=== PATIENT | male | born 1970 | race Two or more races ===

== ENCOUNTER 2016-06-08 02:27 | Emergency (ER) | payer OTHER ==
[~2016-06-08] VITALS: Ht 167.6 cm; Wt 74.8 kg
[2016-06-08 02:29] VITALS: BP 180/91
--- NOTE | 2016-06-08 02:59 | NUR ---
CALLED PT NAME X 3. PT NOT IN WAITING ROOM AT THIS TIME.
--- NOTE | 2016-06-08 03:24 | NUR ---
CALLED PT NAME X 3. PT NOT IN WAITING ROOM AT THIS TIME.
== END 2016-06-08 03:26 | disposition left against medical advice (07) ==
LOC: ER 02:28
DX: Z53.21 Procedure and treatment not carried out due to patient leaving prior to being seen by health care provider (principal)
CPT/HCPCS: A4606; Z7610

== ENCOUNTER 2017-06-12 02:20 | Emergency (ER) | payer OTHER ==
[~2017-06-12] VITALS: Ht 167.6 cm; Wt 70.3 kg
[2017-06-12 02:24] VITALS: BP 150/97
--- NOTE | 2017-06-12 02:36 | NUR ---
AFTER PT WAS TRAIGED. PT STATES HE DOES NOT WANT TO BE SEEN D/T FEELING HIS BLOOD PRESSURE IS NORMAL. RISK AND BENEFITS EXPLAINED X3. PT AND FRIEND STRONGLY REFUSED AND STATES "IF I DONT FEEL GOOD, ILL COME BACK LATER"
== END 2017-06-12 02:40 | disposition left against medical advice (07) ==
LOC: ER 02:23
DX: R10.13 Epigastric pain (principal); Z53.21 Procedure and treatment not carried out due to patient leaving prior to being seen by health care provider
CPT/HCPCS: A4606; Z7610

== ENCOUNTER 2021-10-08 02:56 | Emergency (ER) | payer OTHER ==
[~2021-10-08] VITALS: Ht 165.1 cm; Wt 72.6 kg
--- NOTE | 2021-10-08 03:08 | NUR ---
VALDEMAR, C/O "FEELING MORE STRESSED" BP AT TRIAGE 187/96. PATIENT ALERT AND ORIENTED X4. AMBULATORY WITH NON LABORED BREATHING IN BED 06 ON MONITOR AND POX AWAITING MD IBARRA.
[2021-10-08] MEDS ORDERED: BENA20TA9 PO (03:12)
[2021-10-08] MEDS ORDERED: BENAZEPRIL HCL 10 MG TABLET ONE (03:13)
[2021-10-08 03:17] VITALS: BP 181/94
--- NOTE | 2021-10-08 03:17 | NUR ---
Patient discharged to home in stable condition. Written and verbal after care instructions given. Patient verbalizes understanding of instruction.
[2021-10-08] MEDS ORDERED: BENAZEPRIL HCL 10 MG TABLET PO ONE (03:30)
== END 2021-10-08 03:18 | disposition home or self-care (01) ==
LOC: ER 02:59
DX: I10 Essential (primary) hypertension (principal); F41.9 Anxiety disorder, unspecified; Z79.899 Other long term (current) drug therapy

== ENCOUNTER 2023-07-20 03:53 | Emergency (ER) | payer OTHER ==
[~2023-07-20] VITALS: Ht 175.3 cm; Wt 77.1 kg
[~2023-07-20 03:53] MED LIST: BENA20TA9 PO
[2023-07-20 04:04] VITALS: BP 161/94; TEMP 98.1; O2SAT 98
== END 2023-07-20 04:10 | disposition left against medical advice (07) ==
LOC: ER 03:57
DX: Z00.00 Encounter for general adult medical examination without abnormal findings (principal); Z53.21 Procedure and treatment not carried out due to patient leaving prior to being seen by health care provider

== ENCOUNTER 2024-02-14 22:21 | Emergency (ER) | payer OTHER ==
[~2024-02-14] VITALS: Ht 165.1 cm; Wt 73.9 kg
[2024-02-14 23:57] VITALS: BP 133/80; TEMP 98.2; O2SAT 96
== END 2024-02-14 23:58 | disposition home or self-care (01) ==
LOC: ER 22:41
DX: I10 Essential (primary) hypertension (principal)

== ENCOUNTER 2024-03-28 01:48 | Emergency (ER) | payer OTHER ==
[~2024-03-28] VITALS: Ht 167.6 cm; Wt 74.4 kg
[2024-03-28] MEDS ORDERED: dexaMETHasone SOD PHOSPHATE 1 ML ONE ×2 (02:31→02:36)
[2024-03-28] MEDS ORDERED: diphenhydrAMINE HCL 50 MG/ML VIAL ONE (02:31)
[2024-03-28] MEDS: diphenhydrAMINE HCL 50 MG/ML VIAL IM ONE (02:45)
[2024-03-28] MEDS: dexaMETHasone SOD PHOSPHATE 4 MG/ML VIAL IM ONE (02:46)
[2024-03-28 03:31] VITALS: BP 124/89; TEMP 98.1; O2SAT 98
== END 2024-03-28 03:31 | disposition home or self-care (01) ==
LOC: ER 01:52
DX: L50.9 Urticaria, unspecified (principal); T78.40XA Allergy, unspecified, initial encounter; Z86.59 Personal history of other mental and behavioral disorders; X58.XXXA Exposure to other specified factors, initial encounter
CPT/HCPCS: 99284; 96372 ×2; J1100 ×2; J1200